=== PATIENT | female | born 1930 | race Caucasian/White ===

== ENCOUNTER 2017-01-04 10:05 | Day surgery (SDC) | payer MEDICARE ==
--- NOTE | ~2017-01-04 | OP ---
Record Of Operation [facility] [address] [place]. [address] NAME: ERNIE LAWRENCE : 34 STATUS : [facility]#: [id number] AGE: 86 ADM/REG DATE : 01/04/17 MR#: [id number] REPORT SERV DATE: 01/04/17 DICTATED BY: RAJAT NINO DATE: 01/04/17 REPORT STATUS : Draft TRANSCRIBED BY: PHOEBE DATE: 01/04/17 DATE OF PROCEDURE: 01/04/2017 PROCEDURES: T7 and T11 kyphoplasties with fluoroscopic guidance. DIAGNOSES: 1. Osteoporosis. 2. T7 and T11 pathologic vertebral fractures. 3. Severe thoracalgia, secondary to the above. ANESTHESIA: General. PREPROCEDURAL ANTIBIOTICS: None. COMPLICATIONS: None. ESTIMATED BLOOD LOSS: Approximately 10 mL. FLUIDS: Approximately 800 mL. INTERIM HISTORY: The patient and her primary physician expressed some reticence about her being intubated for general anesthesia for the procedure. Therefore, I discussed with her possibly doing the procedure under conscious sedation. However, I felt that this would make the procedure much more challenging and also more uncomfortable for the patient. I discussed her case with Dr. Hall, the anesthesiologist with Group and he felt very confident and comfortable that she would do well with general anesthesia. Therefore, after consultation with the patient, general anesthesia was chosen. CONSENT: Informed consent was given and a signed informed consent document was obtained. A full description of the procedure was provided including risks and benefits. OPERATIVE PROCEDURE: The patient was brought to the operating room, placed on the exam table with chest rolls in a comfortable prone position. The operative field was prepped with alcohol, followed by ChloraPrep and Ioban and draped in sterile fashion. Local anesthesia both superficial and deep was provided by local infiltration of a total of approximately 20 mL of a 50:50 mixture with 0.5% Marcaine with epinephrine and 1% lidocaine. Anesthesia was provided to the level of the pedicles using a 22-gauge, 3.5 inch spinal needle. This also allowed for correct corroboration of levels between the AP and lateral fluoroscopy at T7 and T11. Her intraoperative radiographs were compared to her previous MRI for correct numbering. Two C-arms were used throughout the procedure in biplanar fashion and radiographs were made throughout the procedure. Attention was first focused on the T11 vertebrae in using a 15 blade scalpel. A small skin rent was made in the skin just lateral to the right pedicle under AP view. A size 2 (Express) trocar was then malleted through the right pedicle just past the posterior margin of the vertebral body in transpedicular fashion using multiple Record Of Operation [facility] [address] [place]. [address] NAME: ERNIE LAWRENCE : 34 STATUS : [facility] PAT#: [id number] AGE: 86 ADM/REG DATE : 01/04/17 MR#: [id number] REPORT SERV DATE: 01/04/17 DICTATED BY: RAJAT NINO DATE: 01/04/17 REPORT STATUS : Draft TRANSCRIBED BY: PHOEBE DATE: 01/04/17 radiographic views under AP and lateral projections. The Kyphon biopsy device was then clored under continuous live fluoroscopy until reaching the junction of the anterior one- third and posterior two-thirds of the vertebral body under lateral projections. The biopsy device was near the midline on the AP view. The same procedure was then repeated on the left side. A biopsy was obtained from the left as well. Two Kyphon balloon tamps were placed through the introducers and then inflatable bone tamps were filled with contrast to a pressure of approximately 300 PSI and radiographs revealed excellent intraosseous bone cavity formation on AP and lateral radiographs. The balloon tamps were then deflated and removed and a total of approximately 4 mL of polymethylmethacrylate (PMMA) was pushed through the introducers after being mixed and warmed and given time to harden. The patient tolerated this well and radiographs revealed excellent interosseous cement spread with good interdigitation and no evidence of extravasation. My focus was then turned to the T7 vertebrae. Given that this is higher in the thoracic cavity which is used in an extrapedicular approach rather than a transpedicular approach at this level. After superficial anesthesia and anesthesia deep to the pedicles was administered and a small skin incision was made, I used a size 2 trocar to dock at the superolateral portion of the pedicle at the head of the rib. The trocar was carefully malleted through the bone and I was pleased with the placement. I repeated the same procedure on the left side. Bone biopsies were obtained and using the Kyphon balloon tamps, this was filled to a pressure of approximately 200 PSI with good intraosseous cavity formation and only a small superior herniation through the T7 endplate on the right side. The balloon tamps were then deflated and removed and after the PMMA was mixed and warmed and given time to harden, I placed 1.5 mL of PMMA in the T7 vertebrae under continuous live lateral fluoroscopy at low doses. The patient had excellent intraosseous spread without any significant extravasation noted. All introducers were removed and counts were correct. Final radiographs were taken with intraosseous cement spread noted. Skin nicks were then cleansed with alcohol and apposed by Dermabond and Steri-Strips. They were covered with Telfa, 4x4, and Tegaderm. She tolerated the procedure well and there were no complications. She will be taken to the recovery area and will be provided with postprocedural instructions. She will also be provided with contact information and instructed to call regarding any concerning symptoms or questions. IMPRESSION: 1. Successful kyphoplasties of the T7 and T11 levels under fluoroscopic guidance. 2. Bone biopsies from the levels of T7 and T11 were sent to pathology for further examination. 3. Radiographs were made with details as noted above. LSR/PHOEBE Rajat Nino M.D. Record Of Operation [address] [address] NAME: ERNIE LAWRENCE : 34 STATUS : [facility] PAT#: [id number] AGE: 86 ADM/REG DATE : 01/04/17 MR#: [id number] REPORT SERV DATE: 01/04/17 DICTATED BY: RAJAT NINO DATE: 01/04/17 REPORT STATUS : Draft TRANSCRIBED BY: MODL DATE: 01/04/17 / [id number] CC: Alanna Muniz DO
[~2017-01-04 10:05] MED LIST: ASA5GR PO; ASAB PO; ASABAYER PO; ATV.5 PO; CARDCD120 PO; LIPITOR40 PO; LOVAZA1 GM PO; METHOC500B PO; NEXIUM40 PO; PLAVIX PO; PRESERVISION A1 EACH PO; PROMEGA PO; PROTONIX PO; PROZAC PO; VITD PO
[2017-01-04 10:54] LABS: HEMATOCRIT 41.4 % (36.0-48.0)
[2017-01-04 11:04] LABS: BUN (BLOOD UREA NITROGEN) 12 MG/DL (6-23); CALCIUM, SERUM 9.1 MG/DL (8.5-10.4); CHLORIDE, SERUM 106 MMOL/L (96-112); CO2 (CARBON DIOXIDE) 31 MMOL/L (24-34); CREATININE 0.72 MG/DL (0.55-1.02); GFR AFRICAN AMERICAN 89 ML/MIN (>=60); GFR NON AFRICAN AMERICAN 77 ML/MIN (>=60); GLUCOSE, SERUM 91 MG/DL (60-99); POTASSIUM, SERUM 3.8 MMOL/L (3.5-5.3); SODIUM, SERUM 146 MMOL/L (135-148)
[2017-01-04 13:39] LABS: PLATELET COUNT 272 10/3/uL (150-400)
== END 2017-01-04 16:22 | disposition home or self-care (01) ==
LOC: SDC 10:05
PROVIDERS: Emergency Medicine Sports Medicine
PROC: 0PU43JZ Supplement Thoracic Vertebra with Synthetic Substitute, Percutaneous Approach (ICD-10-PCS; 2017-01-04)
PROC: 0P943ZX Drainage of Thoracic Vertebra, Percutaneous Approach, Diagnostic (ICD-10-PCS; 2017-01-04)
PROC: 0PS43ZZ Reposition Thoracic Vertebra, Percutaneous Approach (ICD-10-PCS; principal; 2017-01-04 11:45)
DX: M80.08XA Age-related osteoporosis with current pathological fracture, vertebra(e), initial encounter for fracture (principal); M19.90 Unspecified osteoarthritis, unspecified site; I25.10 Atherosclerotic heart disease of native coronary artery without angina pectoris; E78.00 Pure hypercholesterolemia, unspecified; J44.9 Chronic obstructive pulmonary disease, unspecified; K21.9 Gastro-esophageal reflux disease without esophagitis; K44.9 Diaphragmatic hernia without obstruction or gangrene; F41.9 Anxiety disorder, unspecified; F32.9 Major depressive disorder, single episode, unspecified; F17.210 Nicotine dependence, cigarettes, uncomplicated; Z86.73 Personal history of transient ischemic attack (TIA), and cerebral infarction without residual deficits; Z91.011 Allergy to milk products; Z91.013 Allergy to seafood; Z91.018 Allergy to other foods; Z79.82 Long term (current) use of aspirin; Z79.02 Long term (current) use of antithrombotics/antiplatelets; Z79.899 Other long term (current) drug therapy; Z98.41 Cataract extraction status, right eye; Z98.42 Cataract extraction status, left eye; Z96.1 Presence of intraocular lens; Z95.5 Presence of coronary angioplasty implant and graft; Z98.890 Other specified postprocedural states; Z90.49 Acquired absence of other specified parts of digestive tract; Z90.711 Acquired absence of uterus with remaining cervical stump
CPT/HCPCS: 80048; 85014; 85018; 85049; 88307; 88311; 93005; 94640; C1726; J0330; J3010; J3370; Q9967